=== PATIENT | female | born 1975 | race Caucasian/White ===

== ENCOUNTER 2016-11-14 21:49 | Emergency (ER) | payer OTHER, MEDICAID ==
[~2016-11-14] VITALS: Ht 160 cm; Wt 65.6 kg
[~2016-11-14 21:49] MED LIST: BUSP5TAB PO; HYDR-3133 PO; LEVO88TA2 PO; NAPR500T PO; OMEP40CA2 PO; RISP0.252 PO; ROBA500T PO; VENL37.5 PO
[2016-11-14 22:23] VITALS: BP 136/90; PULSE 87; RESP 16; TEMP 99.2; O2SAT 100
[2016-11-14] MEDS ORDERED: IBUPROFEN 600 MG TAB PO ONE (23:30)
[2016-11-15] MEDS ORDERED: CYCL1TAB29 PO (00:07)
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
[2016-11-15 00:22] VITALS: TEMP 98.7
== END 2016-11-15 00:23 | disposition home or self-care (01) ==
LOC: PHEFT 21:49
DX: S46.912A Strain of unspecified muscle, fascia and tendon at shoulder and upper arm level, left arm, initial encounter (principal); Z72.0 Tobacco use; V43.52XA Car driver injured in collision with other type car in traffic accident, initial encounter; Y93.89 Activity, other specified; Y92.410 Unspecified street and highway as the place of occurrence of the external cause
CPT/HCPCS: 71020; 73030; 99284